=== PATIENT | female | born 1990 | race Two or more races ===

== ENCOUNTER 2018-11-21 14:11 | Emergency (ER) | payer MEDICAID, OTHER ==
[~2018-11-21] VITALS: Ht 152.4 cm; Wt 56.7 kg
[2018-11-21] MEDS ORDERED: birth control (14:20)
--- NOTE | 2018-11-21 14:25 | NUR ---
ED Nurse Note: PT WALKED IN TO ER TODAY FROM HOME. AOX4. PT C/O LEFT BREAST PAIN, 10/ X 1 WEEK AGO. PT C/O TINGLING SENSATION TO LEFT BREAST RADIATING DOWN LEFT ARM X THIS MORNING. PT DENIES ANY NUMBNESS. CIRCULATION AND SENSATION INTACT. 5/5 MUSCLE STRENGTH OF HANDS. EQUAL [employer] AND PULLS.
[2018-11-21 14:27] VITALS: BP 126/74
--- NOTE | 2018-11-21 14:43 | Emergency Room Report ---
History of Present Illness General Chief Complaint: Pain Source: Patient Present Illness HPI 28 YO Female presents to the ED c/o 01/07 in severity pain, tenderness and palpable lumps in the lateral left breast that has been progressive x 1 week. Pt. also reports an episode of electrical shooting pain with numbness down the left arm once. Pt. is unable to reproduce her symptoms. She currently has paresthesia localized on the dorsum of the left forearm. pt. Denies motor weakness or skin color or temperature changes. Pt. denies rash but reports hx of shingles near the area on her breast/ side that she is experiencing pain and tenderness. Pt. reports fatigue and night sweats. She denies changes in weight. She denies personal or familial hx of cancer. She denies trauma or fall. Denies neck pain or previous neck injuries. Pt. reports having breast US last year which showed multiple cysts in the breasts bilaterally. No other aggravating or relieving factors. Pt. is not taking any medications other than oral BC. Allergies: Coded Allergies: No Known Allergies (Unverified , 11/21/18) Patient History Past Medical History: see triage record Past Surgical History: none Pertinent Family History: none Last Menstrual Period: 11/07/18 Now: No Reviewed Nursing Documentation: PMH: Agreed; PSxH: Agreed Nursing Documentation-PMH Past Medical History: No Stated History Review of Systems All Other Systems: negative except mentioned in HPI Physical Exam Vital Signs Date Time Temp Pulse Resp B/P (MAP) Pulse Ox O2 Delivery O2 Flow Rate FiO2 11/21/18 14:16 97.9 99 18 132/75 (94) 99 Room Air Sp02 EP Interpretation: reviewed, normal General Appearance: no apparent distress, alert, GCS 15, non-toxic Head: normocephalic, atraumatic Eyes: bilateral eye normal inspection, bilateral eye PERRL ENT: hearing grossly normal, normal voice Neck: full range of motion, no bony tend Respiratory: chest non-tender, lungs clear, normal breath sounds, speaking full sentences, other - palpable breast lumps on the upper outer portion of the left breast. No LAD Cardiovascular #1: regular rate, rhythm, no edema, normal capillary refill Cardiovascular #2: 2+ radial (R), 2+ radial (L) Musculoskeletal: back normal, gait/station normal, normal range of motion, non- tender Neurologic: alert, oriented x3, responsive, motor strength/tone normal, sensory intact, normal gait, speech normal, grossly normal Psychiatric: judgement/insight normal Skin: no rash, other - scar noted from previous shingle outbreak on the left lateral chest Lymphatic: no adenopathy - no appreciable axillary LAD Medical Decision Making PA Attestation Dr. Ness is my supervising Physician whom patient management has been discussed with. Diagnostic Impression: Primary Impression: Breast complaint Additional Impressions: Breast lump in upper outer quadrant Paresthesia of arm ER Course 28 YO Female presents to the ED c/o 01/07 in severity pain, tenderness and palpable lumps in the lateral left breast that has been progressive x 1 week. Pt. also reports an episode of electrical shooting pain with numbness down the left arm once. Pt. is unable to reproduce her symptoms. She currently has paresthesia localized on the dorsum of the left forearm. pt. Denies motor weakness or skin color or temperature changes. Pt. denies rash but reports hx of shingles near the area on her breast/ side that she is experiencing pain and tenderness. Pt. reports fatigue and night sweats. She denies changes in weight. She denies personal or familial hx of cancer. She denies trauma or fall. Denies neck pain or previous neck injuries. Pt. reports having breast US last year which showed multiple cysts in the breasts bilaterally. No other aggravating or relieving factors. Pt. is not taking any medications other than oral BC. Ddx considered but are not limited to cellulitis, abscess, mastitis, shingles, malignancy, LAD, nerve impingement just to name a few. Vital signs: are WNL, pt. is afebrile H&PE are most consistent with palpable breast lumps on the upper outer portion of the left breast. No signs of infections, no focal neurological deficits. No motor weakness. ORDERS: none required at this time, the diagnosis is clinical ED INTERVENTIONS: -Naproxen 500mg PO -I do not identify an emergent condition at this time. With current presentation , pt. is stable for close outpatient follow up and conservative treatment. D/ w pt. to return promptly to ED with worsening or new symptoms.- Pt. verbalizes' understanding and agreement with proposed treatment plan. DISCHARGE: At this time pt. is stable for d/c to home. Will provide printed patient care instructions, and any necessary prescriptions. Care plan and follow up instructions have been discussed with the patient prior to discharge. Last Vital Signs Date Time Temp Pulse Resp B/P (MAP) Pulse Ox O2 Delivery O2 Flow Rate FiO2 11/21/18 14:27 98.1 88 17 126/74 100 Room Air Disposition: HOME, SELF-CARE Condition: Stable Scripts Naproxen* (NAPROXEN*) 500 Mg Tablet 500 MG ORAL TWICE A WEEK, #20 TAB 0 Refills Prov: Eve Sorto 11/21/18 Patient Instructions: Breast Tenderness Additional Instructions: Take medications as directed. Follow up with a OBGYN within 3-5 days, even if your symptoms have resolved. Return sooner to ED if new symptoms occur, or current symptoms become worse. - Please note that this Emergency Department Report was dictated using [employer] tech technology software, occasionally this can lead to erroneous entry secondary to interpretation by the dictation equipment. Eve Sorto Nov 21, 2018 14:43
[2018-11-21] MEDS ORDERED: NAPROXEN500 M2 ORAL (14:44)
[2018-11-21] MEDS ORDERED: Naproxen 500mg tab ORAL ONE (14:45)
--- NOTE | 2018-11-21 14:47 | NUR ---
ED Nurse Note: PT LAYING PEACEFULLY IN BED IN NAD. AOX4. PRESCRIPTION AND DISCHARGE PAPERWORK EXPLAINED TO PT. PT VERBALIZES UNDERSTANDING AND ALL QUESTIONS ANSWERED. PRESCRIPTION AND DISCHARGE PAPERWORK GIVEN TO PT AND ID WRISTBAND REMOVED. PT WALKED OUT OF ER WITH STEADY GAIT AND ALL BELONGINGS.
== END 2018-11-21 14:50 | disposition home or self-care (01) ==
LOC: EMR 14:49
DX: N63.21 Unspecified lump in the left breast, upper outer quadrant (principal); R20.2 Paresthesia of skin
CPT/HCPCS: 99282